=== PATIENT | female | born 1980 | race American Indian/Alaskan Native ===

== ENCOUNTER 2016-04-21 09:07 | Emergency (ER) | payer MEDICARE ==
--- NOTE | 2016-04-21 09:47 | Emergency Department Report ---
Chief Complaint: Chest Pain Stated Complaint: CHEST PAIN Time Seen by Provider: 04/21/16 09:40 - HPI History of Present Illness: 35 y/o female complain of chest pain x 1 day .pt state she has taken asa and blood pressures prior to arrival .pt state pain nonradiating and describe as a pulling sensation .denies any n/v at present - ROS Review of Systems: per hpI - Exam Vital Signs: Vital Signs 04/21/16 09:18 Temperature 99.4 F Pulse Rate 97 H Respiratory 16 Rate Blood Pressure 138/100 O2 Sat by Pulse 100 Oximetry Physical Exam: cv: regular rate and rhythm abd.soft and flat audible bowel sounds MSE screening note: Focused history and physical exam performed. Due to findings the following was ordered: ED Disposition for MSE Condition: Stable
[2016-04-21 10:29] LABS: Basophils % (Auto) 0.4 % (0.0-1.8); Eosinophils % (Auto) 0.7 % (0.0-4.3); Hematocrit 37.7 % (30.3-42.9); Hemoglobin 12.2 gm/dl (10.1-14.3); Mean Corpuscular HGB Conc 32 % (30-34); Mean Corpuscular Hemoglobin 26 pg (28-32); Mean Corpuscular Volume 81 fl (79-97); Platelet Count 293 K/mm3 (140-440); Red Blood Count 4.65 M/mm3 (3.65-5.03); Red Cell Distribution Width 18.4 % (13.2-15.2); White Blood Count 7.5 K/mm3 (4.5-11.0)
[2016-04-21 10:38] LABS: INR 1.08 (0.87-1.13)
[2016-04-21 10:39] LABS: Partial Thromboplastin Time 26.9 Sec. (24.2-36.6)
[2016-04-21 10:45] LABS: Anion Gap 21 mmol/L; Blood Urea Nitrogen 4 mg/dL (7-17); Carbon Dioxide 18 mmol/L (22-30); Chloride 102.8 mmol/L (98-107); Creatine Kinase 129 units/L (30-135); Glucose 104 mg/dL (65-100); Potassium 4.2 mmol/L (3.6-5.0); Sodium 138 mmol/L (137-145)
[2016-04-21 10:46] LABS: Creatine Kinase MB < 1.0 ng/mL (0.0-4.0)
--- NOTE | 2016-04-21 14:31 | Emergency Department Report ---
HPI - General Chief Complaint: Chest Pain Time Seen by Provider: 04/21/16 13:39 - HPI HPI: Chief complaint: Productive cough, chest pain fluctuant blood pressures HPI: Patient is a 35-year-old female with a history of hypertension states she' s had a cold for the last week and has been coughing up yellow sputum. Patient states she has chest pain in her anterior chest that hurts when she coughs and is a pulling type pain. Patient states she had her blood pressure refilled at her physician's office 4 days ago and she was given prescriptions for her normal medications but her hydrochlorothiazide was left off. Patient states usually her blood pressure is managed quite well with these medications but since she has not been taking the HCTZ and has been going up and down. Patient also states her pulses been rapid at times. Mode of arrival: EMS Source: Patient old chart Began: Cough for 1 week, chest pain since yesterday Duration: Continuous Context: See above Quality: Dull Severity: 6 out of 10 Improved with: Nothing Worsened with: Movement, cough, deep inspiration Associated signs and symptoms: No fever, nausea or vomiting ED Past Medical Hx - Past Medical History Hx Hypertension: Yes (2009) Hx Psychiatric Treatment: Yes Hx Asthma: Yes (SINCE CHILD) - Surgical History Additional Surgical History: MYOMECTOMY. - Social History Smoking Status: Never Smoker Substance Use Type: None - Medications Home Medications: Home Medications Medication Instructions Recorded Confirmed Last Taken Type ALBUTEROL Inhaler [ProAir HFA 2 puff IH QID PRN #1 inha 10/29/15 Unknown Rx Inhaler] Diltiazem [CarDIZEM] 60 mg PO DAILY 10/29/15 10/29/15 10/29/15 History LORazepam [Ativan] 2 mg PO BID 10/29/15 10/29/15 10/29/15 History Loratadine 10 mg PO DAILY 10/29/15 10/29/15 10/29/15 History Quetiapine Fumarate [Seroquel] 100 mg PO DAILY 10/29/15 10/29/15 10/29/15 History predniSONE [Deltasone] 20 mg PO QDAY #5 tab 10/29/15 Unknown Rx Azithromycin [Zithromax TAB] 500 mg PO QDAY #3 tablet 04/21/16 Unknown Rx Benzonatate [Tessalon Perles] 100 mg PO Q8HR PRN #14 capsule 04/21/16 Unknown Rx Hydrochlorothiazide [Hctz] 12.5 mg PO QDAY #30 capsule 04/21/16 Unknown Rx traMADol [Ultram 50 MG tab] 50 mg PO Q6HR PRN #10 tablet 04/21/16 Unknown Rx ED Review of Systems ROS: Stated complaint: CHEST PAIN Other details as noted in HPI ROS Constitutional: No fever ENT: No uri symptoms Cardiovascular: N chest pain Respiratory: See HPI GI: No nausea vomiting or diarrhea : No dysuria frequency or urgency, Skin: No rash Neuro: No focal weakness or numbness Psych: On Seroquel Escobar/lymph: No edema Physical Exam - Physical Exam Vital Signs: Vital Signs 04/21/16 09:18 Temperature 99.4 F Pulse Rate 97 H Respiratory 16 Rate Blood Pressure 138/100 O2 Sat by Pulse 100 Oximetry Physical Exam: GENERAL: The patient is well-developed well-nourished . HEENT: Normocephalic. Atraumatic. Extraocular motions are intact. Patient has moist mucous membranes. NECK: Supple. No meningitic signs are noted. There is no adenopathy noted. CHEST/LUNGS: Clear to auscultation. There is no respiratory distress noted. HEART/CARDIOVASCULAR: Regular. There is no tachycardia. There is no gallop rub or murmur. ABDOMEN: Abdomen is soft, nontender. Patient has normal bowel sounds. There is no abdominal distention. SKIN: There is no rash. There is no edema. There is no diaphoresis. NEURO: The patient is awake, alert, and oriented. The patient is cooperative. The patient has no focal neurologic deficits. The patient has normal speech. MUSCULOSKELETAL: There is no tenderness or deformity. There is no limitation range of motion. There is no evidence of acute injury. ED Course Vital Signs 04/21/16 09:18 Temperature 99.4 F Pulse Rate 97 H Respiratory 16 Rate Blood Pressure 138/100 O2 Sat by Pulse 100 Oximetry ED Medical Decision Making - Lab Data Result diagrams: 04/21/16 09:58 04/21/16 09:58 - EKG Data -: EKG Interpreted by Me EKG shows normal: sinus rhythm Rate: normal (93) - EKG Data When compared to previous EKG there are: no significant change Interpretation: normal EKG - Radiology Data interpreted by me: Chest x-ray within normal limits Critical care attestation.: If time is entered above; I have spent that time in minutes in the direct care of this critically ill patient, excluding procedure time. ED Disposition Clinical Impression: Bronchitis, Pleuritic chest pain, Essential hypertension Disposition: DISCHARGED TO HOME OR SELFCARE Is pt being admited?: No Does the pt Need Aspirin: No Condition: Stable Instructions: Chest Pain (ED), Acute Bronchitis (ED), Hypertension (ED) Prescriptions: Azithromycin [Zithromax TAB] 500 mg PO QDAY #3 tablet Benzonatate [Tessalon Perles] 100 mg PO Q8HR PRN #14 capsule PRN Reason: Cough Hydrochlorothiazide [Hctz] 12.5 mg PO QDAY #30 capsule traMADol [Ultram 50 MG tab] 50 mg PO Q6HR PRN #10 tablet PRN Reason: Pain Referrals: SHANIQUE INTERIANO MD [Primary Care Provider] - 3-5 Days Time of Disposition: 14:53
[2016-04-21 15:08] VITALS: BP 128/83
--- NOTE | 2016-04-22 07:51 | XRay Report ---
ROUTINE CHEST, TWO VIEWS: HISTORY: chest pain. The trachea, heart, mediastinal contour, lung ware and bony thorax are unremarkable. IMPRESSION: Unremarkable chest x-ray. No significant change since 12/18/15.
== END 2016-04-21 15:07 | disposition home or self-care (01) ==
LOC: ED 09:07
DX: J40 Bronchitis, not specified as acute or chronic (principal); R07.1 Chest pain on breathing; I10 Essential (primary) hypertension; J45.909 Unspecified asthma, uncomplicated
CPT/HCPCS: 36415; 71020; 80048; 82550; 82553; 84484; 84702; 85025; 85610; 85730; 93005; 93010; 99284

== ENCOUNTER 2016-10-04 01:23 | Inpatient (IN) | payer MEDICARE ==
[2016-10-04 02:41] LABS: Urine Drugs of Abuse Note Disclamer
[2016-10-04 02:52] LABS: Basophils % (Auto) 0.4 % (0.0-1.8); Eosinophils % (Auto) 0.1 % (0.0-4.3); Hematocrit 35.9 % (30.3-42.9); Hemoglobin 11.6 gm/dl (10.1-14.3); Mean Corpuscular HGB Conc 32 % (30-34); Mean Corpuscular Hemoglobin 26 pg (28-32); Mean Corpuscular Volume 82 fl (79-97); Platelet Count 310 K/mm3 (140-440); White Blood Count 7.6 K/mm3 (4.5-11.0)
[2016-10-04 02:57] LABS: Red Cell Distribution Width 21.8 % (13.2-15.2)
[2016-10-04 03:12] LABS: Alanine Aminotransferase 26 units/L (7-56); Albumin 4.6 g/dL (3.9-5); Albumin/Globulin Ratio 1.1 %; Alkaline Phosphatase 63 units/L (35-129); Anion Gap 19 mmol/L; BUN/Creatinine Ratio 11.42; Blood Urea Nitrogen 8 mg/dL (7-17); Calcium 9.5 mg/dL (8.4-10.2); Carbon Dioxide 22 mmol/L (22-30); Chloride 100.8 mmol/L (98-107); Glucose 108 mg/dL (65-100); Potassium 3.1 mmol/L (3.6-5.0); Sodium 139 mmol/L (137-145); Total Protein 8.8 g/dL (6.3-8.2)
[2016-10-04 03:39] LABS: Bilirubin,Urine Negative (Negative); Blood,Urine Trace (Negative); Ketones,Urine Negative (Negative); Leukocyte Esterase,Urine Negative (Negative); Nitrite,Urine Negative (Negative); Urobilinogen,Urine 0.2 mg/dL (<2.0)
[2016-10-04] MEDS ORDERED: PROVENTIL IH ONE (06:57)
[2016-10-04] MEDS ORDERED: DELTASONE PO ONE (06:57)
[2016-10-04] MEDS ORDERED: NACL 0.9% 1000 ML 1,000 ML IV ONE ×2 (06:59→09:04)
--- NOTE | 2016-10-04 07:04 | Emergency Department Report ---
ED Altered Mental Status HPI - General Chief Complaint: Altered Mental Status Stated Complaint: ASTHMA/SUDEEP Time Seen by Provider: 10/04/16 06:15 Source: patient, family Mode of arrival: Ambulatory Limitations: No Limitations - History of Present Illness Initial Comments: 36-year-old female with past medical history of anxiety is presented to the [facility] primary complaint altered mental status. Per patient, and her significant other at the bedside, they states she had episodes of extreme aggression and then tearfulness. Symptoms occurred just prior to ED arrival. Per boyfriend patient was celebrating her birthday throughout the day without alcohol or drugs, and then throughout the day she began to get increasingly irritable stating "get away from me, I don't like you" and then hours later extremely tearful saying "come closer,hold me" and the screaming at him again. Pt partner states she has had this type of behacior in the past however whenever it occurs pt has no recollection of it. The patient has no recollection of the events from prior today. She states "i dont know what happened" patient denies shortness of breath, dyspnea that was noted in nursing triage notes. Patient denies colon SI/HI/AH/VH. MD Complaint: altered mental status, confusion -: Sudden, hour(s) Consistency of Symptoms: waxing and waning Associated Symptoms: denies other symptoms. denies: chest pain, cough, diaphoresis, fever/chills, malaise, nausea/vomiting, seizure, shortness of breath, foul smelling urine, difficulty walking, diarrhea, incontinence - Related Data Home Medications Medication Instructions Recorded Confirmed Last Taken Loratadine 10 mg PO DAILY 10/29/15 10/04/16 10/29/15 Losartan [Cozaar] 100 mg PO DAILY MDD 100 mg 10/04/16 10/04/16 10/03/16 100 mg Nebivolol HCl [Bystolic] 10 mg PO DAILY MDD 10 mg 10/04/16 10/04/16 10/03/16 10 mg Previous Rx's Medication Instructions Recorded Last Taken Type ALBUTEROL Inhaler [ProAir HFA 2 puff IH QID PRN #1 inha 10/29/15 10/03/16 Rx Inhaler] Enoxaparin [Lovenox] 40 mg SUB-Q QDAY@2200 syringe 10/06/16 Unknown Rx Losartan [Cozaar] 100 mg PO QDAY tablet 10/06/16 Unknown Rx Allergies Allergy/AdvReac Type Severity Reaction Status Date / Time lorazepam AdvReac ELEVATES HR Verified 04/21/16 09:24 morphine AdvReac Unknown Verified 04/21/16 09:24 ED Review of Systems ROS: Stated complaint: ASTHMA/SUDEEP Other details as noted in HPI Psychiatric: anxiety. denies: depression, auditory hallucinations, visual hallucinations, homicidal thoughts, suicidal thoughts ED Past Medical Hx - Past Medical History Hx Hypertension: Yes (2009) Hx Congestive Heart Failure: No Hx Diabetes: No Hx Psychiatric Treatment: Yes (Anxiety) Hx Asthma: Yes (SINCE CHILD) Hx COPD: No Hx Dementia: No - Surgical History Additional Surgical History: MYOMECTOMY. - Social History Smoking Status: Never Smoker Substance Use Type: None - Medications Home Medications: Home Medications Medication Instructions Recorded Confirmed Last Taken Type ALBUTEROL Inhaler [ProAir HFA 2 puff IH QID PRN #1 inha 10/29/15 10/04/16 Rx Inhaler] Loratadine 10 mg PO DAILY 10/29/15 10/04/16 10/29/15 History Losartan [Cozaar] 100 mg PO DAILY MDD 100 mg 10/04/16 10/04/16 10/03/16 History 100 mg Nebivolol HCl [Bystolic] 10 mg PO DAILY MDD 10 mg 10/04/16 10/04/16 10/03/16 History 10 mg Enoxaparin [Lovenox] 40 mg SUB-Q QDAY@2200 syringe 10/06/16 Unknown Rx Losartan [Cozaar] 100 mg PO QDAY tablet 10/06/16 Unknown Rx ED Physical Exam - General Limitations: No Limitations - Psychiatric Psychiatric exam: Present: normal affect, normal mood, anxious. Absent: depressed, flat affect, homicidal ideation, suicidal ideation - Assessment Assessment Interval: Baseline - Level of Consciousness 1a. Level of Consciousness: alert - LOC Questions 1b. LOC Questions: answers correctly - LOC Command 1c. LOC Commands: performs tasks correctly - Best Gaze 2. Best Gaze: normal - Visual 3. Visual: no visual loss - Facial Palsy 4. Facial Palsy: normal symmetrical movement - Motor Arm 5b. Motor Arm Right: no drift 5a. Motor Arm Left: no drift - Motor Leg 6a. Motor Leg Left: no drift 6b. Motor Leg Right: no drift - Limb Ataxia 7. Limb Ataxia: absent - Sensory 8. Sensory: normal - Best Language 9. Best Language: no aphasia - Dysarthria 10. Dysarthria: normal - Extinction and Inattention 11. Extinction/Inattention: no abnormality - Scoring Total Score: 0 Stroke Severity: No Stroke Symptoms ED Course Vital Signs 10/04/16 10/04/16 10/04/16 01:42 06:00 06:20 Temperature 98 F Pulse Rate 133 H 112 H 114 H Pulse Rate [ Left] Respiratory 26 H 18 19 Rate Blood Pressure 153/109 Blood Pressure [Left Arm] Blood Pressure 153/109 141/84 [Left] O2 Sat by Pulse 100 98 100 Oximetry 10/04/16 10/04/16 10/04/16 06:30 07:35 09:30 Temperature 98.7 F Pulse Rate 115 H 116 H 108 H Pulse Rate [ Left] Respiratory 20 20 20 Rate Blood Pressure 133/82 Blood Pressure [Left Arm] Blood Pressure 153/98 152/76 [Left] O2 Sat by Pulse 100 100 100 Oximetry 10/04/16 10/04/16 10/04/16 12:05 14:00 20:22 Temperature 98.4 F 98.6 F 98.9 F Pulse Rate 100 H Pulse Rate [ 112 H 98 H Left] Respiratory 18 18 18 Rate Blood Pressure Blood Pressure 138/80 143/87 [Left Arm] Blood Pressure 152/96 [Left] O2 Sat by Pulse 100 100 99 Oximetry 10/05/16 10/05/16 10/05/16 00:42 08:00 15:00 Temperature 98 F 98.0 F 98.8 F Pulse Rate Pulse Rate [ 100 H 75 91 H Left] Respiratory 20 18 18 Rate Blood Pressure Blood Pressure 160/95 133/88 140/85 [Left Arm] Blood Pressure [Left] O2 Sat by Pulse 98 100 100 Oximetry 10/05/16 10/06/16 10/06/16 22:00 00:00 07:58 Temperature 98.0 F 99.0 F Pulse Rate Pulse Rate [ 90 84 Left] Respiratory 18 20 20 Rate Blood Pressure Blood Pressure 167/96 123/83 [Left Arm] Blood Pressure [Left] O2 Sat by Pulse 100 99 Oximetry 10/06/16 10:00 Temperature Pulse Rate Pulse Rate [ 20 L Left] Respiratory Rate Blood Pressure Blood Pressure [Left Arm] Blood Pressure [Left] O2 Sat by Pulse Oximetry - Reevaluation(s) Reevaluation #1: 10/04/16 09:41 Patient resting comfortably. - Lab Data Result diagrams: 10/05/16 06:07 10/06/16 05:11 Lab Results 10/04/16 10/04/16 10/04/16 Range/Units 02:25 02:25 02:32 WBC (4.5-11.0) K/mm3 RBC (3.65-5.03) M/mm3 Hgb (10.1-14.3) gm/dl Hct (30.3-42.9) % MCV (79-97) fl MCH (28-32) pg MCHC (30-34) % RDW (13.2-15.2) % Plt Count (140-440) K/mm3 Lymph % (Auto) (13.4-35.0) % Harmon % (Auto) (0.0-7.3) % Eos % (Auto) (0.0-4.3) % Baso % (Auto) (0.0-1.8) % Lymph # (1.2-5.4) K/mm3 Harmon # (0.0-0.8) K/mm3 Eos # (0.0-0.4) K/mm3 Baso # (0.0-0.1) K/mm3 Seg Neutrophils % (40.0-70.0) % Seg Neutrophils # (1.8-7.7) K/mm3 D-Dimer (0-234) ng/mlDDU Sodium (137-145) mmol/L Potassium (3.6-5.0) mmol/L Chloride (98-107) mmol/L Carbon Dioxide (22-30) mmol/L Anion Gap mmol/L BUN (7-17) mg/dL Creatinine (0.7-1.2) mg/dL Estimated GFR ml/min BUN/Creatinine Ratio % Glucose (65-100) mg/dL POC Glucose (70-105) Lactic Acid (0.7-2.0) mmol/L Calcium (8.4-10.2) mg/dL Magnesium (1.7-2.3) mg/dL Total Bilirubin (0.1-1.2) mg/dL AST (5-40) units/L ALT (7-56) units/L Alkaline Phosphatase (35-129) units/L Total Protein (6.3-8.2) g/dL Albumin (3.9-5) g/dL Albumin/Globulin Ratio % TSH (0.270-4.200) mlU/mL HCG, Qual Negative (Negative) Urine Color Yellow (Yellow) Urine Turbidity Clear (Clear) Urine pH 5.0 (5.0-7.0) Ur Specific [place] 1.020 (1.003-1.030) Urine Protein 30 mg/dl (Negative) mg/dL Urine Glucose (UA) Negative (Negative) mg/dL Urine Ketones Negative (Negative) mg/dL Urine Blood Trace (Negative) Urine Nitrite Negative (Negative) Urine Bilirubin Negative (Negative) Urine Urobilinogen 0.2 (<2.0) mg/dL Ur Leukocyte Esterase Negative (Negative) Urine WBC (Auto) 1.0 (0.0-6.0) /HPF Urine RBC (Auto) 2.0 (0.0-6.0) /HPF U Epithel Cells (Auto) 5.0 (0-13.0) /HPF Salicylates (2.8-20.0) mg/dL Urine Opiates Screen Presumptive negative Urine Methadone Screen Presumptive negative Acetaminophen (10.0-30.0) ug/mL Ur Barbiturates Screen Presumptive negative Ur Phencyclidine Scrn Presumptive negative Ur Amphetamines Screen Presumptive negative U Benzodiazepines Scrn Presumptive negative Urine Cocaine Screen Presumptive negative U Marijuana (THC) Screen Presumptive negative Drugs of Abuse Note Disclamer Plasma/Serum Alcohol (0-0.07) gm% 10/04/16 10/04/16 10/04/16 Range/Units 02:32 02:32 02:32 WBC 7.6 (4.5-11.0) K/mm3 RBC 4.40 (3.65-5.03) M/mm3 Hgb 11.6 (10.1-14.3) gm/dl Hct 35.9 (30.3-42.9) % MCV 82 (79-97) fl MCH 26 L (28-32) pg MCHC 32 (30-34) % RDW 21.8 H (13.2-15.2) % Plt Count 310 (140-440) K/mm3 Lymph % (Auto) 22.8 (13.4-35.0) % Harmon % (Auto) 9.7 H (0.0-7.3) % Eos % (Auto) 0.1 (0.0-4.3) % Baso % (Auto) 0.4 (0.0-1.8) % Lymph # 1.7 (1.2-5.4) K/mm3 Harmon # 0.7 (0.0-0.8) K/mm3 Eos # 0.0 (0.0-0.4) K/mm3 Baso # 0.0 (0.0-0.1) K/mm3 Seg Neutrophils % 67.0 (40.0-70.0) % Seg Neutrophils # 5.1 (1.8-7.7) K/mm3 D-Dimer (0-234) ng/mlDDU Sodium 139 (137-145) mmol/L Potassium 3.1 L (3.6-5.0) mmol/L Chloride 100.8 (98-107) mmol/L Carbon Dioxide 22 (22-30) mmol/L Anion Gap 19 mmol/L BUN 8 (7-17) mg/dL Creatinine 0.7 (0.7-1.2) mg/dL Estimated GFR > 60 ml/min BUN/Creatinine Ratio 11.42 % Glucose 108 H (65-100) mg/dL POC Glucose (70-105) Lactic Acid 4.40 H* (0.7-2.0) mmol/L Calcium 9.5 (8.4-10.2) mg/dL Magnesium 1.60 L (1.7-2.3) mg/dL Total Bilirubin 0.40 (0.1-1.2) mg/dL AST 54 H (5-40) units/L ALT 26 (7-56) units/L Alkaline Phosphatase 63 (35-129) units/L Total Protein 8.8 H (6.3-8.2) g/dL Albumin 4.6 (3.9-5) g/dL Albumin/Globulin Ratio 1.1 % TSH (0.270-4.200) mlU/mL HCG, Qual (Negative) Urine Color (Yellow) Urine Turbidity (Clear) Urine pH (5.0-7.0) Ur Specific [place] (1.003-1.030) Urine Protein (Negative) mg/dL Urine Glucose (UA) (Negative) mg/dL Urine Ketones (Negative) mg/dL Urine Blood (Negative) Urine Nitrite (Negative) Urine Bilirubin (Negative) Urine Urobilinogen (<2.0) mg/dL Ur Leukocyte Esterase (Negative) Urine WBC (Auto) (0.0-6.0) /HPF Urine RBC (Auto) (0.0-6.0) /HPF U Epithel Cells (Auto) (0-13.0) /HPF Salicylates (2.8-20.0) mg/dL Urine Opiates Screen Urine Methadone Screen Acetaminophen (10.0-30.0) ug/mL Ur Barbiturates Screen Ur Phencyclidine Scrn Ur Amphetamines Screen U Benzodiazepines Scrn Urine Cocaine Screen U Marijuana (THC) Screen Drugs of Abuse Note Plasma/Serum Alcohol (0-0.07) gm% 10/04/16 10/04/16 10/04/16 Range/Units 02:32 02:32 02:32 WBC (4.5-11.0) K/mm3 RBC (3.65-5.03) M/mm3 Hgb (10.1-14.3) gm/dl Hct (30.3-42.9) % MCV (79-97) fl MCH (28-32) pg MCHC (30-34) % RDW (13.2-15.2) % Plt Count (140-440) K/mm3 Lymph % (Auto) (13.4-35.0) % Harmon % (Auto) (0.0-7.3) % Eos % (Auto) (0.0-4.3) % Baso % (Auto) (0.0-1.8) % Lymph # (1.2-5.4) K/mm3 Harmon # (0.0-0.8) K/mm3 Eos # (0.0-0.4) K/mm3 Baso # (0.0-0.1) K/mm3 Seg Neutrophils % (40.0-70.0) % Seg Neutrophils # (1.8-7.7) K/mm3 D-Dimer (0-234) ng/mlDDU Sodium (137-145) mmol/L Potassium (3.6-5.0) mmol/L Chloride (98-107) mmol/L Carbon Dioxide (22-30) mmol/L Anion Gap mmol/L BUN (7-17) mg/dL Creatinine (0.7-1.2) mg/dL Estimated GFR ml/min BUN/Creatinine Ratio % Glucose (65-100) mg/dL POC Glucose (70-105) Lactic Acid (0.7-2.0) mmol/L Calcium (8.4-10.2) mg/dL Magnesium (1.7-2.3) mg/dL Total Bilirubin (0.1-1.2) mg/dL AST (5-40) units/L ALT (7-56) units/L Alkaline Phosphatase (35-129) units/L Total Protein (6.3-8.2) g/dL Albumin (3.9-5) g/dL Albumin/Globulin Ratio % TSH 1.190 (0.270-4.200) mlU/mL HCG, Qual (Negative) Urine Color (Yellow) Urine Turbidity (Clear) Urine pH (5.0-7.0) Ur Specific [place] (1.003-1.030) Urine Protein (Negative) mg/dL Urine Glucose (UA) (Negative) mg/dL Urine Ketones (Negative) mg/dL Urine Blood (Negative) Urine Nitrite (Negative) Urine Bilirubin (Negative) Urine Urobilinogen (<2.0) mg/dL Ur Leukocyte Esterase (Negative) Urine WBC (Auto) (0.0-6.0) /HPF Urine RBC (Auto) (0.0-6.0) /HPF U Epithel Cells (Auto) (0-13.0) /HPF Salicylates < 0.3 L (2.8-20.0) mg/dL Urine Opiates Screen Urine Methadone Screen Acetaminophen < 15.0 (10.0-30.0) ug/mL Ur Barbiturates Screen Ur Phencyclidine Scrn Ur Amphetamines Screen U Benzodiazepines Scrn Urine Cocaine Screen U Marijuana (THC) Screen Drugs of Abuse Note Plasma/Serum Alcohol (0-0.07) gm% 10/04/16 10/04/16 10/04/16 Range/Units 02:32 02:34 05:27 WBC (4.5-11.0) K/mm3 RBC (3.65-5.03) M/mm3 Hgb (10.1-14.3) gm/dl Hct (30.3-42.9) % MCV (79-97) fl MCH (28-32) pg MCHC (30-34) % RDW (13.2-15.2) % Plt Count (140-440) K/mm3 Lymph % (Auto) (13.4-35.0) % Harmon % (Auto) (0.0-7.3) % Eos % (Auto) (0.0-4.3) % Baso % (Auto) (0.0-1.8) % Lymph # (1.2-5.4) K/mm3 Harmon # (0.0-0.8) K/mm3 Eos # (0.0-0.4) K/mm3 Baso # (0.0-0.1) K/mm3 Seg Neutrophils % (40.0-70.0) % Seg Neutrophils # (1.8-7.7) K/mm3 D-Dimer (0-234) ng/mlDDU Sodium (137-145) mmol/L Potassium (3.6-5.0) mmol/L Chloride (98-107) mmol/L Carbon Dioxide (22-30) mmol/L Anion Gap mmol/L BUN (7-17) mg/dL Creatinine (0.7-1.2) mg/dL Estimated GFR ml/min BUN/Creatinine Ratio % Glucose (65-100) mg/dL POC Glucose 101 (70-105) Lactic Acid 3.50 H* (0.7-2.0) mmol/L Calcium (8.4-10.2) mg/dL Magnesium (1.7-2.3) mg/dL Total Bilirubin (0.1-1.2) mg/dL AST (5-40) units/L ALT (7-56) units/L Alkaline Phosphatase (35-129) units/L Total Protein (6.3-8.2) g/dL Albumin (3.9-5) g/dL Albumin/Globulin Ratio % TSH (0.270-4.200) mlU/mL HCG, Qual (Negative) Urine Color (Yellow) Urine Turbidity (Clear) Urine pH (5.0-7.0) Ur Specific [place] (1.003-1.030) Urine Protein (Negative) mg/dL Urine Glucose (UA) (Negative) mg/dL Urine Ketones (Negative) mg/dL Urine Blood (Negative) Urine Nitrite (Negative) Urine Bilirubin (Negative) Urine Urobilinogen (<2.0) mg/dL Ur Leukocyte Esterase (Negative) Urine WBC (Auto) (0.0-6.0) /HPF Urine RBC (Auto) (0.0-6.0) /HPF U Epithel Cells (Auto) (0-13.0) /HPF Salicylates (2.8-20.0) mg/dL Urine Opiates Screen Urine Methadone Screen Acetaminophen (10.0-30.0) ug/mL Ur Barbiturates Screen Ur Phencyclidine Scrn Ur Amphetamines Screen U Benzodiazepines Scrn Urine Cocaine Screen U Marijuana (THC) Screen Drugs of Abuse Note Plasma/Serum Alcohol < 0.01 (0-0.07) gm% 10/04/16 Range/Units 07:26 WBC (4.5-11.0) K/mm3 RBC (3.65-5.03) M/mm3 Hgb (10.1-14.3) gm/dl Hct (30.3-42.9) % MCV (79-97) fl MCH (28-32) pg MCHC (30-34) % RDW (13.2-15.2) % Plt Count (140-440) K/mm3 Lymph % (Auto) (13.4-35.0) % Harmon % (Auto) (0.0-7.3) % Eos % (Auto) (0.0-4.3) % Baso % (Auto) (0.0-1.8) % Lymph # (1.2-5.4) K/mm3 Harmon # (0.0-0.8) K/mm3 Eos # (0.0-0.4) K/mm3 Baso # (0.0-0.1) K/mm3 Seg Neutrophils % (40.0-70.0) % Seg Neutrophils # (1.8-7.7) K/mm3 D-Dimer < 135 (0-234) ng/mlDDU Sodium (137-145) mmol/L Potassium (3.6-5.0) mmol/L Chloride (98-107) mmol/L Carbon Dioxide (22-30) mmol/L Anion Gap mmol/L BUN (7-17) mg/dL Creatinine (0.7-1.2) mg/dL Estimated GFR ml/min BUN/Creatinine Ratio % Glucose (65-100) mg/dL POC Glucose (70-105) Lactic Acid (0.7-2.0) mmol/L Calcium (8.4-10.2) mg/dL Magnesium (1.7-2.3) mg/dL Total Bilirubin (0.1-1.2) mg/dL AST (5-40) units/L ALT (7-56) units/L Alkaline Phosphatase (35-129) units/L Total Protein (6.3-8.2) g/dL Albumin (3.9-5) g/dL Albumin/Globulin Ratio % TSH (0.270-4.200) mlU/mL HCG, Qual (Negative) Urine Color (Yellow) Urine Turbidity (Clear) Urine pH (5.0-7.0) Ur Specific [place] (1.003-1.030) Urine Protein (Negative) mg/dL Urine Glucose (UA) (Negative) mg/dL Urine Ketones (Negative) mg/dL Urine Blood (Negative) Urine Nitrite (Negative) Urine Bilirubin (Negative) Urine Urobilinogen (<2.0) mg/dL Ur Leukocyte Esterase (Negative) Urine WBC (Auto) (0.0-6.0) /HPF Urine RBC (Auto) (0.0-6.0) /HPF U Epithel Cells (Auto) (0-13.0) /HPF Salicylates (2.8-20.0) mg/dL Urine Opiates Screen Urine Methadone Screen Acetaminophen (10.0-30.0) ug/mL Ur Barbiturates Screen Ur Phencyclidine Scrn Ur Amphetamines Screen U Benzodiazepines Scrn Urine Cocaine Screen U Marijuana (THC) Screen Drugs of Abuse Note Plasma/Serum Alcohol (0-0.07) gm% - EKG Data EKG shows normal: sinus rhythm (109), axis (positive ), intervals (QTC 476) Rate: tachycardia (109) When compared to previous EKG there are: previous EKG unavailable - Radiology Data Radiology results: image reviewed Negative for acute findings. - Medical Decision Making 36 yo female with past medical history of anxiety as presented to the emergency room complaining of what appears to be resolved acute psychosis. At this time given patient presented with tachycardia, significant elevated lactic acid i will admit for obs and hydration. The cause of her lactic acidosis, sure of at this time however I will start on them. IV and a biotic treatment. I low suspicion for: PE, thyroid storm, Sepsis, UTI, PNA. Pt is resting comfortably and agrees to plan - NEXUS Criteria Focal neurological deficit present: No Midline spinal tenderness present: No Altered level of consciousness: No Intoxication present: No Distracting injury present: No NEXUS results: C-Spine can be cleared clinically by these results. Imaging is not required. Critical Care Time: Yes Critical care attestation.: If time is entered above; I have spent that time in minutes in the direct care of this critically ill patient, excluding procedure time. Critical Care Time: 35 MINUTES ED Disposition Clinical Impression: Psychoses, Tachycardia, Lactic acidosis Disposition: DC-01 TO HOME OR SELFCARE Is pt being admited?: Yes Does the pt Need Aspirin: No Condition: Stable
--- NOTE | 2016-10-04 07:19 | XRay Report ---
Single view chest: Compared to 04/21/16. History: Cough. Findings: Normal cardiomediastinal silhouette. Trachea is midline. No consolidation, pneumothorax or pleural effusion. Impression: No acute cardiopulmonary findings.
[2016-10-04] MEDS ORDERED: LEVAQUIN 750MG/150ML 750 MG/150 ML BAG IV ONE (09:36)
--- NOTE | 2016-10-04 09:37 | Admit Criteria Form ---
Admission Criteria Documentation: GENERAL ADMISSION CRITERIA (Place 'X' for any and all applicable criteria): Admission is indicated for ANY ONE of the following: [X ]I. Hemodynamic instability as indicated by ANY ONE of the following(1)(2 )(3)(4)(5): [ ]a) Vital sign abnormality not readily corrected by appropriate treatment within 12 to 24 hours indicated by ANY ONE of the following: [ ]i) Hypotension [ ]ii) Symptomatic Tachycardia unresponsive to treatment (eg , analgesia, fluids, sedation as indicated) [ ]iii) Orthostatic vital sign changes unresponsive to treatment (eg, fluids) [X ]b) Vital sign abnormality that is severe indicated by ANY ONE of the following: [ X]i) Inadequate perfusion indicated by ANY ONE of the following: [X ]1) Lactic acidosis (greater than 2 mmol/L) [ ]2) New abnormal capillary refill (greater than 3 seconds) [ ]3) Other metabolic acidosis (arterial pH less than 7.35) not otherwise explained [ ]4) Reduced urine output [ ]5) Altered mental status [ ]6) Myocardial Ischemia [ ]v) Mean arterial pressure[A] less than 60 mm Hg [ ]vi) Mean arterial pressure[A] less than 70 mm Hg after 30 minutes of appropriate treatment (eg, fluid resuscitation) [ ]vii) IV inotropic or vasopressor medication required to maintain adequate blood pressure or perfusion [ ]viii) Sustained heart rate greater than 120 beats per minute in adult or child 6 years or older[B]] [ ]II. Hypertension requiring inpatient treatment as indicated by ANY ONE of the following(6)(7)(8): [ ]a) SBP greater than 220 mm Hg or DBP greater than 120 mm Hg despite treatment [ ]b) SBP greater than 140 mm Hg or DBP greater than 100 mm Hg with evidence of acute end organ damage as indicated by ANY ONE of the following: [ ]i) Encephalopathy [ ]ii) Acute renal failure as indicated by new onset of ANY ONE of the following(9)(10)(11)(12)(13): [ ]1) A 3-fold rise in serum creatinine from baseline [ ]2) Serum creatinine greater than 4 mg/dL ( 354 micromoles/L) with acute rise greater than 0.5 mg/dL (44.2 micromoles/L) [ ]3) Reduction of more than 75% in estimated glomerular filtration rate from baseline [ ]4) Estimated glomerular filtration rate less than 35 mL/min/1.73m2 (0.59 mL/sec/1.73m2) in child up to 18 years of age [ ]5) Cessation of urine output indicated by ALL of the following: [ ]A. Adequate volume status [ ]B. Inadequate urine output as indicated by ANY ONE of the following: [ ]a. Urine output less than 0.3 mL/kg/hr for 24 hours [ ]b. Anuria (urine output less than 0.1 mL/kg/hr) for 12 hours [ ]iii) Aortic dissection [ ]iv) Myocardial ischemia [ ]v) Left ventricular heart failure [ ]vi) Retinal hemorrhage [ ]vii) Other significant finding [ ]c) Hypertension in child requiring inpatient treatment as indicated by ALL of the following(14)(15)(16): [ ]i) Outpatient treatment not effective, not available, or not appropriate [ ]ii) SBP or DBP greater than 95th percentile for age [ ]iii) Evidence of acute end organ damage as indicated by ANY ONE of the following: [ ]1) Altered mental status [ ]2) Acute renal failure as indicated by new onset of ANY ONE of the following(9)(10)(11)(12)(13): [ ]A. A 3-fold rise in serum creatinine from baseline [ ]B. Serum creatinine greater than 4 mg/dL (354 micromoles/L) with acute rise greater than 0.5 mg/dL (44.2 micromoles/L) [ ]C. Reduction of more than 75% in estimated glomerular filtration rate from baseline [ ]D. Estimated glomerular filtration rate less than 35 mL/min/1.73m2 (0.59 mL/sec/1.73m2)in child up to 18 years of age [ ]E. Cessation of urine output indicated by ALL of the following: [ ]a. Adequate volume status [ ]b. Inadequate urine output as indicated by ANY ONE of the following: [ ]1) Urine output less than 0.3 mL/kg/hr for 24 hours [ ]2) Anuria (urine output less than 0.1 mL/kg/hr) for 12 hours [ ]3) Severe headache [ ]4) Visual disturbance [ ]5) Retinal hemorrhage [ ]6) Other significant finding [ ]III. Acute cardiac or peripheral ischemia as indicated by ANY ONE of the following: [ ]a) Acute coronary syndrome(17)(18) [ ]b) Acute peripheral ischemia (eg, pulseless, cool, mottled, or cyanotic extremity)(19) [ ]IV. Cardiac arrhythmias or findings of immediate concern indicated by ANY ONE of the following(20)(21): [ ]a) Heart rhythms that are inherently dangerous or unstable indicated by ANY ONE of the following(22)(23)(24): [ ]i) Resuscitated ventricular fibrillation or cardiac arrest [ ]ii) Ventricular escape rhythm [ ]iii) Sustained ventricular tachycardia (30 seconds or more of ventricular rhythm at greater than 100 beats per minute) [ ]iv) Nonsustained ventricular tachycardia and ANY ONE of the following: [ ]1) Suspected cardiac ischemia as cause or consequence of ventricular tachycardia [ ]2) In setting of acute myocarditis [ ]b) Unstable cardiac conduction defects indicated by ANY ONE of the following(24)(25)(26): [ ]i) Type II second-degree atrioventricular block [ ]ii) Third-degree atrioventricular block [ ]iii) New-onset left bundle branch block with suspected myocardial ischemia [ ]c) Any heart rhythm and ANY ONE of the following(22)(23)(27)(28)( 29): [ ] i) Continuous long-term ECG monitoring needed (eg, initiation of drug requiring monitoring for more than 24 hours) [ ] ii) Patient has automatic implanted cardioverter defibrillator that is repeatedly firing, malfunctioning, or in need of immediate adjustment of settings beyond the scope of ambulatory or observation care. [ ]d) Heart rhythms of concern due to ANY ONE of the following: [ ]i) Hypotension [ ]ii) Respiratory distress [ ]iii) Association with other significant symptoms (eg, bradycardia with syncope or ongoing dizziness, supraventricular tachycardia with chest pain) (27)(28) (30) [ ] V. Severe heart failure as indicated by ANY ONE of the following ( 31)(32): [ ]a) Respiratory distress [ ]b) Hypotension [ ]c) Anasarca (refractory to outpatient therapy) [ ]d) Cardiac arrhythmias of immediate concern [ ]e) Myocardial ischemia [ ]. Respiratory abnormalities, including ANY ONE of the following(33)(34) (35)(36): [ ]a) Respiratory rate greater than 30 breaths per minute unresponsive to treatment [A] [ ]b) New saturation of arterial oxygen less than 90% [ ]c) New partial pressure of carbon dioxide greater than 44 mm Hg ( 5.9 kPa) [ ]d) Supplemental oxygen or respiratory treatments needed that are new or not performable at other levels of care [ ]e) New-onset cyanosis [ ]f) Inability to protect airway [ ]g) Chronic lung disease with severe deterioration (not responsive to emergency and observation care treatment as appropriate) as indicated by ANY ONE of the following(34)(36 ): [ ]i) SaO2 5% below baseline in patient with chronic hypoxemia [ ]ii) New requirement for supplemental oxygen to keep SaO2 at baseline or acceptable level [ ]iii) Required supplemental oxygen performable only in acute inpatient setting [ ]iv) Severe airflow or ventilation abnormalities [ ]v) Previously mobile patient unable to walk between rooms [ ]vi Inability to eat or sleep due to dyspnea [ ]vii) Rapid rate of exacerbation onset [ ]viii) Altered mental status ]VII. Severe airflow or ventilation abnormalities (not responsive to emergency and observation care treatment as appropriate) as indicated by ANY ONE of the following(33)(34)(35)(37): [ ]a) PCO2 greater than 42 mm Hg (5.6 kPa) and pH less than 7.35 (new ) [ ]b) Documented PCO2 increased more than 5 mm Hg (0.7 kPa) from disease baseline [ ]c) Airflow measurements [B] less than 60% of previous best or predicted (eg, peak expiratory flow rate less than 300 L/minute) despite intensive emergent treatment [C] [ ]d) Required respiratory treatments that are performable only in acute inpatient setting [ ]VIII. Impending or actual respiratory arrest ( Also use Respiratory Failure GRG for severe respiratory disease and long-term mechanical ventilation patients) [ ]IX. Neurologic abnormalities, including ANY ONE of the following: [ ]a) New findings that suggest ANY ONE of the following: [ ]i) [employer] infection(38) [ ]ii) Cerebral bleeding, ischemia, or vasospasm(39)(40) [ ]iii) Increased intracranial pressure, hydrocephalus, or cerebral edema(41)(42)(43) [ ]iv) Spinal cord injury(44) [ ]b) Uncontrolled seizures(45) [ ]c) New-onset coma (eg, [place] coma scale score less than 9) or unexplained abnormal mental status (eg, [place] coma scale score less than 14) [D](41)(46)(47) [ ]X. New-onset severe neurologic findings requiring inpatient care; examples include(42)(48)(49): [ ]a) Papilledema [ ]b) Cerebral edema [ ]c) Mass effect on CT scan [ ]XI. Suspected acute intra-abdominal process with peritoneal signs, abdominal mass, or similar findings (50)(51)(52) [ ]XII. Severe physiologic disorder remaining after emergency or observation level care (as appropriate) as indicated by ANY ONE of the following (53): [ ]a) Significant dehydration [ ]b) Diabetic ketoacidosis [ ]c) Hyperglycemic hyperosmolar state (eg, osmolality greater than 320 mOsm/kg (mmol/kg) [ ]d) Hypoglycemia [ ]e) Other (new) acid-base disorder with pH less than 7.35 or greater than 7.5(54) [ ]f) Thyroid storm (55) [ ]g) Myxedema coma (55) [ ]XIII. Abdominal abnormalities with ANY ONE of the following(56)(57): [ ]a) Absent bowel sounds with complete ileus [ ]b) Signs of intestinal obstruction or peritonitis [E] [ ]c) Nausea and vomiting that cannot be controlled with outpatient or observation care [ ]XIV. Acute renal failure as indicated by new onset of ANY ONE of the following(9)(10)(11)(12)(13): [ ]a) A 3-fold rise in serum creatinine from baseline [ ]b) Serum creatinine greater than 4 mg/dL (354 micromoles/L) with acute rise greater than 0.5 mg/dL (44.2 micromoles/L) [ ]c) Reduction of more than 75% in estimated glomerular filtration rate from baseline [ ]d) Estimated glomerular filtration rate less than 35 mL/min/ 1.73m2 (0.59 mL/sec/1.73m2) in child up to 18 years of age [ ]e) Cessation of urine output indicated by ALL of the following: [ ]i) Adequate volume status [ ]ii) Inadequate urine output as indicated by ANY ONE of the following: [ ]1) Urine output less than 0.3 mL/kg/hr for 24 hours [ ]2) Anuria (urine output less than 0.1 mL/kg/hr) for 12 hours [ ]XV. Significant uremic complications as indicated by ANY ONE of the following(58)(59)(60): [ ]a) Outpatient therapy is ineffective or not feasible for ANY ONE of the following: [ ]i) Severe heart failure [ ]ii) Severehypertension [ ]iii) Pleural effusion [ ]iv) Pericarditis or pericardial effusion [ ]b) Cardiac arrhythmias of immediate concern [ ]c) Intractable nausea or vomiting [ ]d) Recurrent seizures [ ]e) Encephalopathy [ ]f) Bleeding abnormalities (eg, platelet dysfunction) with active (eg, gastrointestinal) bleeding [ ]g) Dialysis indicated before long-term access or ambulatory arrangements can be made [ ]h) Significant metabolic or electrolyte abnormalities (eg, severe acidosis or hyperkalemia) [ ]XVI. High fever or other high-risk infection situation as indicated by ANY ONE of the following(61)(62)(63)(64): [ ]a) Outpatient and observation care antimicrobial treatment unavailable, not effective, or not appropriate [ ]b) Documented bacteremia [ ]c) Temperature greater than 40.5 degrees C (104.9 degrees F) ( oral) [ ]d) Temperature greater than 39.5 degrees C (103.1 degrees F) ( oral) or less than 36 degrees C (96.8 degrees F) (rectal) that does not respond to e treatment and observation care [ ] XVII. Temperature less than 95 degrees F (35 degrees C)(rectal)(65) [ ] XVIII. Severe nutritional abnormalities as indicated by ALL of the following (66)(67): [ ]a) Inability to tolerate or establish sufficient oral or other enteral nutrition in outpatient setting [ ]b) Parenteral nutrition regimen need that must be implemented on inpatient basis [ ] XIX. Severe electrolyte abnormalities indicated by ALL of the following(68) (69)(70): [ ]a) Electrolytes and associated findings are not as expected for patient baseline or acceptable treatment effects. [ ]b) Severe abnormalities indicated by ANY ONE of the following: [ ]i) Sodium less than 130 mEq/L (mmol/L) (new) [ ]ii)Sodium less than 135 mEq/L (mmol/L) with ANY ONE of the following: [ ]1) Uncorrectable (to near normal or chronic baseline) after trial of outpatient and emergency treatment [ ]2) Altered mental status [ ]3) Seizures [ ]4) Severe medical etiology requiring inpatient management (eg, heart failure, hypovolemia) [ ]iii) Sodium greater than 155 mEq/L (mmol/L) [ ]iv) Sodium greater than 150 mEq/L (mmol/L) with ANY ONE of the following: [ ]1) Uncorrectable (to near normal or chronic baseline) with outpatient and emergency treatment [ ]2) Altered mental status [ ]3) Seizures [ ]4) Severe medical etiology (eg, hypovolemia, diabetes insipidus) [ ]v) Potassium less than 2.5 mEq/L (mmol/L) despite outpatient and emergency treatment [ ]vi) Potassium less than 3 mEq/L (mmol/L) with ANY ONE of the following: [ ]1) Weakness [ ]2) Cardiac abnormality (eg, arrhythmia, conduction disturbance) [ ]3) Cardiac ischemia [ ]4) Ileus [ ]5) Ongoing medical cause requiring inpatient management (eg, acute renal wasting or SIADH) [ ]6) Other severe symptoms [ ]vii) Potassium greater than 6.5 mEq/L (mmol/L) [ ]viii) Potassium greater than 5 mEq/L (mmol/L) with ANY ONE of the following: [ ]1) Uncorrectable (to near normal or chronic baseline) with outpatient and emergency treatment [ ]2) Severe ECG findings [F] [ ]3) Acute worsening of renal failure (creatinine greater than 2.5 mg/dL (221 micromoles/L) or significant elevation for age and size) [ ]4) Severe weakness [ ]5) Severe medical etiology (eg, hemolysis, infection, drug overdose) [ ]ix) Calcium less than 7 mg/dL (1.75 mmol/L) despite outpatient and emergency treatment (72) [ ]x) Calcium less than 8 mg/dL (2 mmol/L) with significant symptoms or findings; examples include(72): [ ]1) Altered mental status [ ]2) Muscle spasms [ ]3) Seizures [ ]4) Breathing difficulty [ ]5) Cardiac abnormality (eg, arrhythmia or conduction disturbance) [ ]xi) Calcium greater than 14 mg/dL (3.5 mmol/L)(72) [ ]xii) Calcium greater than 12 mg/dL (3 mmol/L) with ANY ONE of the following(72): [ ]1) Uncorrectable (to near normal or chronic baseline) with outpatient and emergency treatment [ ]2) Significant dehydration or hypovolemia as indicated by ALL of the following(70)(73)(74): [ ]A. Not resolved with initial treatments [ ]B. Clinically significant dehydration as indicated by ANY ONE of the following: [ ]a. Vomiting refractory to outpatient treatment (ie, precluding oral rehydration) [ ]b. Inability to drink [ ]c. Hypernatremia or other electrolyte abnormality unable to be corrected with outpatient and emergency treatment [ ]d. Failure to remain hydrated with outpatient therapy [ ]e. Reduced urine output [ ]f. Hypotension [ ]g. Serious cause for dehydration requiring acute hospitalization (eg, bowel obstruction, increased intracranial pressure, infectious cause) [ ]h. Child with ANY ONE of the following(75): [ ]1) Severe abdominal tenderness [ ]2) Adequate care not available at home [ ]3) Severe dehydration ( greater than 9% loss of body weight) [ ]4) Significant symptoms or findings; examples include: [ ]A. Altered mental status [ ]B. Cardiac abnormality (eg, arrhythmia, conduction disturbance) [ ]C. Malignant etiology requiring inpatient treatment [ ]xiii) Phosphorus less than 1 mg/dL (0.32 mmol/L) [ ]xiv) Phosphorus less than 1.5 mg/dL (0.48 mmol/L) with ANY ONE of the following: [ ]1) Patient unresponsive to outpatient and emergency treatment [ ]2) Significant symptoms or findings; examples include: [ ]A. Weakness [ ]B. Altered mental status [ ]C. Breathing difficulty [ ]D. Seizures [ ]E. Rhabdomyolysis [ ]xv) Phosphorus greater than 10 mg/dL (3.2 mmol/L) [ ]xvi) Phosphorus greater than 4.5 mg/dL (1.45 mmol/L) (new) with ANY ONE of the following: [ ]1) Severe medical etiology (eg, crush injury, acute renal failure) [ ]2) Associated hypocalcemia with significant findings; examples include: [ ]A. Neurologic symptoms [ ]B. Altered mental status [ ]C. Muscle spasms [ ]D. Seizures [ ]E. Breathing difficulty [ ]F. Cardiac abnormality (eg, arrhythmia, conduction disturbance) [ ]xvii) Magnesium less than 1 mg/dL (0.41 mmol/L) [ ]xviii) Magnesium less than 1.5 mg/dL (0.62 mmol/L) with ANY ONE of the following: [ ]1) Patient unresponsive to outpatient and emergency treatment [ ]2) Associated hypocalcemia with significant findings; examples include: [ ]A. Altered mental status [ ]B. Muscle spasms [ ]C. Seizures [ ]D. Breathing difficulty [ ]E. Cardiac abnormality (eg, arrhythmia , conduction disturbance) [ ]3) Associated hypokalemia (potassium less than 3 mEq/L (mmol/L)) with risk of arrhythmia [ ]xix) Magnesium greater than 4 mEq/L (2 mmol/L) [ ]xx) Magnesium greater than 2.5 mEq/L (1.25 mmol/L) with significant symptoms or findings; examples include: [ ]1) Weakness [ ]2) Altered mental status [ ]3) Cardiac abnormality (eg, arrhythmia, conduction disturbance) [ ]4) Breathing difficulty [ ]5) Severe medical etiology (eg, renal failure, hypovolemia) [ ]xxi) Uric acid greater than 20 mg/dL (1190 micromoles/L)(76) [ ]xxii) Uric acid greater than 8 mg/dL (476 micromoles/L) with significant symptoms or findings of tumor lysis syndrome; examples include(76): [ ]1) Creatinine greater than 1.5 times upper limit of normal [ ]2) Cardiac abnormality (eg, arrhythmia, conduction disturbance) [ ]3) Seizure [ ]XX. Acute blood loss causing significant abnormality as indicated by ANY ONE of the following(77)(78): [ ]a) Hemoglobin less than 10 g/dL (100 g/L) (not baseline) [ ]b) Hematocrit less than 30% (0.30) (not baseline) [ ]c) Repeat hematocrit decreased more than 2% (0.02) [ ]d) Uncontrolled bleeding [ ]XXI. Severe anemia indicated by ANY ONE of the following(78)(79): [ ]a) Altered mental status [ ]b) Chest pain [ ]c) Exertional dyspnea [ ]d) Syncope [ ]e) Other findings suggesting inadequate perfusion [ ]f) Treatment with transfusion or volume replacement is ineffective at resolving ANY ONE of the following [G]: [ ]i) Tachycardia for age [ ]ii) Orthostatic vital sign changes as indicated by ANY ONE of the following(80): [ ]1) Fall in SBP of 20 mm Hg or more 1 to 3 minutes after patient sits or stands from recumbent position [ ]2) Fall in DBP of 10 mm Hg or more 1 to 3 minutes after patient sits or stands from recumbent position [ ]XXII. High-risk low platelet count as indicated by ANY ONE of the following( 81)(82): [ ]a) Severe or life-threatening bleeding (eg, intracranial, major gastrointestinal, or extensive mucosal bleeding), with any reduced platelet count [ ]b) Platelet count less than 20,000/mm3 (20 x109/L) with any active bleeding [ ]c) Platelet count less than 10,000/mm3 (10 x109/L) with minor purpura or petechiae [ ]d) Platelet count less than 5000/mm3 (5 x109/L) [ ]e) Low platelet count with hemolytic anemia [ ]XXIII. Disseminated intravascular coagulation(77)(83) [ ]XXIV. Severe adverse drug or systemic toxin reaction requiring inpatient treatment; examples include(84)(85): [ ]a) Serotonin syndrome(86) [ ]b) Neuroleptic malignant syndrome(86) [ ]c) Cholinergic syndrome with severe symptoms (eg, bronchorrhea, weakness, mental status changes, seizures) [ ]d) Sympathetic syndrome with severe symptoms (eg, seizures, mental status changes, cardiac dysrhythmias) [ ]e) Anticholinergic syndrome [ ]XXV. Severe pain requiring acute inpatient management as indicated by ALL of the following (87)(88)(89): [ ]a) Continuous or frequent (eg, every 2 to 4 hours) parenteral analgesics required [H] [ ]b) Rapid improvement expected from treatment or acute intervention (eg, surgery, anesthesia procedure) [ ]XXVI.Severe behavioral health issues judged unmanageable at a lower level of care (eg, residential) in a patient who is ANY ONE of the following(91) [ ]a) Acutely suicidal [ ]b) A danger to self (eg, self-mutilating or suicidal behavior) [ ]c) A danger to others (eg, assaultive or homicidal behavior) [ ]d) Incapacitated because of grave disability (eg, inability to provide for self at lower level of care) (92) [ ]XXVII. Inpatient monitoring needed; examples include(1)(3)(87)(93)(94)(95)(96 ): [ ]a) Vital signs, neurologic signs, or vascular checks more frequently than every 4 hours [ ]b) Cardiac or respiratory monitoring beyond the scope (eg, over 24 hours) of observation care [ ]c) Pulmonary artery catheter monitoring [ ]d) Suspected compartment syndrome(97) (98) [ ]e) Cerebral bleeding, hydrocephalus, or vasospasm monitoring [ ]f) Increased intracranial pressure or cerebral edema monitoring [ ]g) monitoring [ ]XXVIII. Treatment requiring inpatient care; examples include: [ ]a) IV fluid to replace significant ongoing losses (greater than 3 L/m2 per day)(53) [ ]b) High concentration oxygen (greater than 40%)(33)(99)(100) [ ]c) Frequent respiratory therapy (more frequently than every 4 hours) to maintain airflow rates greater than 60% of baseline(33)(99)(100) [ ]d) Epidural analgesia(87) [ ]e) IV anticoagulation, vasoactive, or antiarrhythmic medication(19 )(23) [ ]f) Acute thrombolytics (generally require 24 hours of observation )(101)(102) [ ]XXIX. Emergency procedures needed; examples include: [ ]a) Emergency inpatient surgery [ ]b) Temporary pacemaker placement(103) [ ]c) Chest tube placement with active evacuation (eg, suction, drainage)(104) [ ]d) Emergent cardioversion(105) [ ]e) Emergent cardiac or vascular procedures (eg, cardiac catheterization, angioplasty) (17)(18) [ ]f) Emergent dialysis access placement and institution(10)(106) [ ]g) Emergent pericardiocentesis(107) [ ]h) Emergent plasmapheresis or leukapheresis(83) [ ]i) Emergent tracheostomy The original [employer] content created by [employer] has been revised. The portions of the content which have been revised are identified through the use of italic text or in bold, and [employer] has neither reviewed nor approved the modified material. All other unmodified content is copyright [employer]. Please see references footnoted in the original [employer] edition 2016 Admission Criteria Met: Yes
[2016-10-04] MEDS: D5/0.45NS 1,000 ML IV SCH (13:27)
[2016-10-04] MEDS ORDERED: ATIVAN IV PRN (14:54)
[2016-10-04] MEDS ORDERED: ATIVAN PO PRN ×2 (15:04→17:41)
--- NOTE | 2016-10-04 17:50 | History and Physical Report ---
History of Present Illness Date of examination: 10/04/16 Date of admission: 10/04/16 10:30 Chief complaint: Altered mental status History of present illness: Pt is a 36 y/o lady who has a history of severe anxiety disorder and had been on Ativan and Seroquel. Seroquel was discontinued 2 month ago at [facility] where she had visited. She was brought in to the [facility] ED today by her who stated that while celebrating her day yesterday, 10/03/16, without any alcohol or illicit drug use, she started behaving irrationally, transitioning from severe agitation with aggressive behavior where she was telling her to get away from her that she hates him to crying shortly thereafter requesting him to hold her. Her who was in the room during this evaluation stated that the patient has not slept for the past 3 days. She endorses visual hallucination of her mother who was long time ago. Denies any SI, HI, tactile or auditory hallucination. had similar episode 4 days ago she stated but denies any memory of what happened then and even yesterday. Pt was taken to [facility] by her yesterday during this episode however they decided ita she can be treated on out patent bases. Her symptom became worse today for which she came to the emergency departments stating she was going to flip if not given any medication. Potassium was found to be 3.1 with magnesium of 1.6 and elevated Lactic acid of 4.4. Repeat was 3.8. Pt denied any dysuria, cough chest pain, diaphoresis, fever/chills, malaise, nausea/vomiting, seizure, shortness of breath, foul smelling urine, difficulty walking, diarrhea, headache or blurred vision Past History Past Medical History: other (sever anxiety d/o w and Bipolar d/o) Past Surgical History: No surgical history Social history: lives with family. denies: IV drug use, full code Family history: no significant family history Medications and Allergies Allergies Allergy/AdvReac Type Severity Reaction Status Date / Time lorazepam AdvReac ELEVATES HR Verified 04/21/16 09:24 morphine AdvReac Unknown Verified 04/21/16 09:24 Home Medications Medication Instructions Recorded Confirmed Last Taken Type ALBUTEROL Inhaler [ProAir HFA 2 puff IH QID PRN #1 inha 10/29/15 10/04/16 Rx Inhaler] LORazepam [Ativan] 2 mg PO BID 10/29/15 10/04/16 10/01/16 History Loratadine 10 mg PO DAILY 10/29/15 10/04/16 10/29/15 History predniSONE [Deltasone] 20 mg PO QDAY #5 tab 10/29/15 10/04/16 10/03/16 Rx Benzonatate [Tessalon Perles] 100 mg PO Q8HR PRN #14 capsule 04/21/16 10/04/16 Unknown Rx Losartan [Cozaar] 100 mg PO DAILY MDD 100 mg 10/04/16 10/04/16 10/03/16 History 100 mg Nebivolol HCl [Bystolic] 10 mg PO DAILY MDD 10 mg 10/04/16 10/04/16 10/03/16 History 10 mg Active Meds: Active Medications Dextrose/Sodium Chloride (D5/0.45ns) 1,000 mls @ 100 mls/hr IV DIRECT NELSON Last Admin: 10/04/16 13:27 Dose: 100 mls/hr Lorazepam (Ativan) 2 mg PO Q4H PRN PRN Reason: Agitation Last Admin: 10/04/16 15:28 Dose: 2 mg Review of Systems Ears, nose, mouth and throat: no ear pain, no ear discharge, no tinnitis Cardiovascular: palpitations, no chest pain, no orthopnea, no rapid/irregular heart beat Respiratory: no cough, no cough with sputum, no excessive sputum Gastrointestinal: no abdominal pain, no nausea, no vomiting Musculoskeletal: no neck stiffness, no neck pain, no shooting arm pain Integumentary: no rash, no pruritis, no redness Neurological: no head injury, no transient paralysis, no paralysis, no weakness Psychiatric: anxiety, memory loss, sleep disturbances, insomnia, disorientation , hallucinations, no suicidal ideation Endocrine: no cold intolerance, no heat intolerance, no polyphagia, no excessive thirst Hematologic/Lymphatic: no easy bruising, no easy bleeding Allergic/Immunologic: no urticaria, no allergic rhinitis Exam - Constitutional Vitals: Temp Pulse Resp BP Pulse Ox 98.6 F 112 H 18 138/80 100 10/04/16 14:00 10/04/16 14:00 10/04/16 14:00 10/04/16 14:00 10/04/16 14:00 General appearance: Present: no acute distress, well-nourished, other (anxius) - EENT Eyes: Present: PERRL ENT: hearing intact, clear oral mucosa - Neck Neck: Present: supple, normal ROM - Respiratory Respiratory effort: normal Respiratory: bilateral: CTA - Cardiovascular Heart Sounds: Present: S1 & S2. Absent: rub, click - Extremities Extremities: pulses symmetrical, No edema Peripheral Pulses: within normal limits - Abdominal General gastrointestinal: Present: soft, non-tender, non-distended, normal bowel sounds Female genitourinary: Present: normal - Integumentary Integumentary: Present: clear, warm, dry - Musculoskeletal Musculoskeletal: gait normal, strength equal bilaterally - Psychiatric Psychiatric: appropriate mood/affect, intact judgment & insight - Neurologic Neurologic: CNII-XII intact, moves all extremities Results - Labs CBC & Chem 7: 10/04/16 02:32 10/04/16 02:32 Assessment and Plan Assessment - Metabolic encepjalopathy - Hypokalemia - Hypomagnesemia - Lactic acidosis - Severe anxiety disorder - Hypertension - Acute Psychosis Plan Admit Medsurge , Urine drug screen, CMP, CBC Lactic acid level q 4 x 3 - Lactic acidosis not likely secondary to infection as pt has no fever of Leukocytosis. Continue to trend. - Ativan 2 mg iv q 4hrs - Supplement K+ and Mg2+ - IV hydration Commence home meds including oral antihypertensives - DVT with Lovenox and GI with pepcid - Psych consult
[2016-10-04] MEDS ORDERED: MAGNESIUM SULFATE 2GM/50ML 2 GM/50 ML BAG IV ONE (18:11)
[2016-10-04] MEDS ORDERED: NON-FORMULARY (Losartan [Cozaar] 100 MG) PO SCH (18:15)
[2016-10-04] MEDS: ATIVAN PO PRN (18:42)
[2016-10-04] MEDS: K-DUR PO SCH (21:50)
[2016-10-04] MEDS: LOVENOX SUB-Q SCH (21:50)
[2016-10-05 07:26] LABS: Basophils % (Auto) 0.3 % (0.0-1.8); Eosinophils % (Auto) 0.2 % (0.0-4.3); Hematocrit 30.3 % (30.3-42.9); Hemoglobin 9.9 gm/dl (10.1-14.3); Mean Corpuscular HGB Conc 33 % (30-34); Mean Corpuscular Hemoglobin 27 pg (28-32); Mean Corpuscular Volume 83 fl (79-97); Platelet Count 230 K/mm3 (140-440); Red Blood Count 3.66 M/mm3 (3.65-5.03); White Blood Count 6.4 K/mm3 (4.5-11.0)
[2016-10-05 07:29] LABS: Alanine Aminotransferase 21 units/L (7-56); Albumin 3.6 g/dL (3.9-5); Albumin/Globulin Ratio 1.1 %; Alkaline Phosphatase 51 units/L (35-129); Anion Gap 18 mmol/L; Blood Urea Nitrogen 5 mg/dL (7-17); Calcium 8.2 mg/dL (8.4-10.2); Carbon Dioxide 18 mmol/L (22-30); Chloride 109.2 mmol/L (98-107); Glucose 92 mg/dL (65-100); Potassium 3.4 mmol/L (3.6-5.0); Sodium 142 mmol/L (137-145)
[2016-10-05 07:31] LABS: Red Cell Distribution Width 21.4 % (13.2-15.2)
[2016-10-05] MEDS: D5/0.45NS 1,000 ML IV SCH (09:26)
[2016-10-05] MEDS: COZAAR PO SCH (09:27)
[2016-10-05] MEDS: K-DUR PO SCH (09:27)
--- NOTE | 2016-10-05 11:56 | Progress Note ---
Assessment and Plan - Patient Problems (1) Metabolic encephalopathy Current Visit: Yes Status: Acute (2) Altered mental status Current Visit: Yes Status: Acute Qualifiers: Altered mental status type: A Coma depth: C Coma timing: C (3) Anxiety disorder Current Visit: Yes Status: Acute Qualifiers: Anxiety disorder type: A (4) Essential hypertension Current Visit: No Status: Acute Subjective Date of service: 10/05/16 Principal diagnosis: metabolic encephalopathy, altered mental status Interval history: Internal medicine Covering Dr. Dr. Johnson, patient seen and examined chart reviewed, no agitation reported and patient denied any headache or shortness of breath no fever reported afebrile and vital stable. Objective - Exam Narrative Exam: GENERAL: Patient not in any acute distress not pale no jaundice no cyanosis HEENT: Mucous membrane is moist, no oral lesions. NECK: [No JVD, no thyroid enlargement and no lymphadenopathy.] CHEST/LUNGS: [Good air exchange bilaterally, no wheeze, no rales and no rhonchi. ] [No chest wall tenderness, percussion is normal, symmetrical chest wall.] HEART/CARDIOVASCULAR: [Regular rate and rhythm, S1 and S2 only, no murmur.] ABDOMEN: [Abdomen is soft, nondistended, no guarding, no rebound tenderness, no masses palpable per abdomen, active bowel sounds.] SKIN: [Warm and dry, no rash.] NEURO: [Awake, alert, oriented x3, speech normal. Power 5/5 in all the extremities.] EXTREMITIES: [No pedal edema, good peripheral pulses, no finger or toe clubbing. ] - Constitutional Vitals: Vital Signs - 12hr 10/05/16 10/05/16 00:42 08:00 Temperature 98 F 98.0 F Pulse Rate [ 100 H 75 Left] Respiratory 20 18 Rate Blood Pressure 160/95 133/88 [Left Arm] O2 Sat by Pulse 98 100 Oximetry - Labs CBC & Chem 7: 10/05/16 06:07 10/05/16 06:07 Labs: Abnormal lab results 10/05/16 10/05/16 Range/Units 06:07 06:07 Hgb 9.9 L (10.1-14.3) gm/dl MCH 27 L (28-32) pg RDW 21.4 H (13.2-15.2) % Lymph % (Auto) 45.8 H (13.4-35.0) % [place] % (Auto) 10.0 H (0.0-7.3) % Potassium 3.4 L (3.6-5.0) mmol/L Chloride 109.2 H (98-107) mmol/L Carbon Dioxide 18 L (22-30) mmol/L BUN 5 L (7-17) mg/dL Creatinine 0.4 L (0.7-1.2) mg/dL Calcium 8.2 L (8.4-10.2) mg/dL Phosphorus 2.40 L (2.5-4.5) mg/dL Magnesium 2.40 H (1.7-2.3) mg/dL AST 47 H (5-40) units/L Albumin 3.6 L (3.9-5) g/dL
[2016-10-05] MEDS: ATIVAN PO PRN ×2 (13:23→22:21)
--- NOTE | 2016-10-05 19:56 | Consultation ---
History of Present Illness - Reason for Consult Consult date: 10/05/16 Reason for consult: psychiatric evaluation - Chief Complaint Chief complaint: "Anxiety" - History of Present Psychiatric Illness Pt is a 36 year old female who has a history of severe anxiety disorder and had been on Ativan and Seroquel. She is being seen for psychiatric consultation due to recent behavior and anxiety. Seroquel was discontinued 2 month ago at [facility] where she had visited. She has an outpatient psychiatrist. Per the record, she was brought in to the [facility] ED today by her who stated that while celebrating her day yesterday, 10/03/16, without any alcohol or illicit drug use, she started behaving irrationally, transitioning from severe agitation with aggressive behavior where she was telling her to get away from her that she hates him to crying shortly thereafter requesting him to hold her. Her who was in the room during this evaluation stated that the patient has not slept for the past 3 days. She endorses visual hallucination of her mother who was long time ago. She denies any SI, HI, tactile or auditory hallucinations. She reports a similar episode 4 days prior. She was taken to [facility] and referred to outpatient services. Her primary complaint is anxiety and states the Ativan does not work anymore.She does not want the seroquel increased. She reports sleeping well last night since it was added. Past History Past Medical History: other (sever anxiety d/o w and Bipolar d/o) Past Surgical History: No surgical history Social history: lives with family. denies alcohol or illicit substance use. She is starting a business Previously on trazodone and reports it did not work well Medications and Allergies Allergies Allergy/AdvReac Type Severity Reaction Status Date / Time lorazepam AdvReac ELEVATES HR Verified 04/21/16 09:24 morphine AdvReac Unknown Verified 04/21/16 09:24 Home Medications Medication Instructions Recorded Confirmed Last Taken Type ALBUTEROL Inhaler [ProAir HFA 2 puff IH QID PRN #1 inha 10/29/15 10/04/16 Rx Inhaler] LORazepam [Ativan] 2 mg PO BID 10/29/15 10/04/16 10/01/16 History Loratadine 10 mg PO DAILY 10/29/15 10/04/16 10/29/15 History predniSONE [Deltasone] 20 mg PO QDAY #5 tab 10/29/15 10/04/16 10/03/16 Rx Benzonatate [Tessalon Perles] 100 mg PO Q8HR PRN #14 capsule 04/21/16 10/04/16 Unknown Rx Losartan [Cozaar] 100 mg PO DAILY MDD 100 mg 10/04/16 10/04/16 10/03/16 History 100 mg Nebivolol HCl [Bystolic] 10 mg PO DAILY MDD 10 mg 10/04/16 10/04/16 10/03/16 History 10 mg Active Meds: Active Medications Enoxaparin Sodium (Lovenox) 40 mg SUB-Q QDAY@2200 [facility] Last Admin: 10/04/16 21:50 Dose: 40 mg Dextrose/Sodium Chloride (D5/0.45ns) 1,000 mls @ 100 mls/hr IV DIRECT NELSON Last Admin: 10/05/16 09:26 Dose: 100 mls/hr Lorazepam (Ativan) 2 mg PO Q3H PRN PRN Reason: Agitation Last Admin: 10/05/16 13:23 Dose: 2 mg Losartan Potassium (Cozaar) 100 mg PO QDAY [facility] Last Admin: 10/05/16 09:27 Dose: 100 mg Quetiapine Fumarate (Seroquel) 50 mg PO QHS [facility] Last Admin: 10/04/16 21:50 Dose: 50 mg Mental Status Exam - Vital signs Last Vital Signs Temp 98.8 F 10/05/16 15:00 Pulse 91 H 10/05/16 15:00 Resp 18 10/05/16 15:00 BP 140/85 10/05/16 15:00 Pulse Ox 100 10/05/16 15:00 - Exam Orientation: time, place, person Affect: other (blunted) Mood: other (irritable) Thought content: other (no SI, no HI) Thought Process: Intact Perceptions: none (denies [facility] at the time of this exam) Speech: normal rate and pattern Concentration: focused Motor activity: normal Level of consciousness: alert Sleep Symptoms: Difficulty Falling Asleep (but improved) Appetite: decreased Interaction: cooperative (but guarded) Results Result Diagrams: 10/05/16 06:07 10/06/16 05:11 Abnormal lab results 10/05/16 10/05/16 10/05/16 Range/Units 06:07 06:07 12:08 Hgb 9.9 L (10.1-14.3) gm/dl MCH 27 L (28-32) pg RDW 21.4 H (13.2-15.2) % Lymph % (Auto) 45.8 H (13.4-35.0) % [place] % (Auto) 10.0 H (0.0-7.3) % Potassium 3.4 L (3.6-5.0) mmol/L Chloride 109.2 H (98-107) mmol/L Carbon Dioxide 18 L (22-30) mmol/L BUN 5 L (7-17) mg/dL Creatinine 0.4 L (0.7-1.2) mg/dL POC Glucose 109 H (70-105) Calcium 8.2 L (8.4-10.2) mg/dL Phosphorus 2.40 L (2.5-4.5) mg/dL Magnesium 2.40 H (1.7-2.3) mg/dL AST 47 H (5-40) units/L Albumin 3.6 L (3.9-5) g/dL All other labs normal. Assessment and Plan Assessment and plan: Impression: Anxiety disorder, unspecified Bipolar disorder unspecified Benzodiazpine tolerance present. Withdrawal precipitating worsening anxiety is possible. No SI, HI or psychosis. Recommendation: Involuntary hold not recommended. 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 It is recommended to increase the Seroquel for mood but the patient declines. Outpatient referrals provided Will follow up in one day
[2016-10-05] MEDS: LOVENOX SUB-Q SCH ×2 (22:00→22:18)
[2016-10-06] MEDS: D5/0.45NS 1,000 ML IV SCH (05:29)
[2016-10-06] MEDS: ATIVAN PO PRN (05:36)
[2016-10-06 06:02] LABS: Chloride 105.2 mmol/L (98-107); Potassium 3.7 mmol/L (3.6-5.0); Sodium 139 mmol/L (137-145)
[2016-10-06 06:03] LABS: Alanine Aminotransferase 22 units/L (7-56); Albumin 3.3 g/dL (3.9-5); Albumin/Globulin Ratio 1.1 %; Alkaline Phosphatase 52 units/L (35-129); Anion Gap 19 mmol/L; Blood Urea Nitrogen 7 mg/dL (7-17); Calcium 8.2 mg/dL (8.4-10.2); Carbon Dioxide 19 mmol/L (22-30); Glucose 97 mg/dL (65-100); Total Protein 6.4 g/dL (6.3-8.2)
[2016-10-06 08:00] VITALS: BP 123/83
[2016-10-06] MEDS: COZAAR PO SCH (10:10)
--- NOTE | 2016-10-06 14:41 | Discharge Summary ---
Providers - Providers Date of Admission: 10/04/16 10:30 Date of discharge: 10/06/16 Attending physician: SHANIQUE INTERIANO 10/04/16 14:33 Consult to Physician [CONS] Routine Consulting Provider: JUAN A OBRIEN Reason For Exam: psych evaluation Place consult to:: psych Notified:: jeanmarie Phone number called:: [phone] Was contact made?: Yes If yes, spoke with:: jeanmarie Time called:: 14:36 Comment:: said to place patient on list. 10/04/16 18:03 psychiatry consult [Consult to Mental Health] [CONS] Urgent Reason For Exam: Acute Psychosis with anxiety diorder Place consult to:: Psychiatris Notified:: yes Phone number called:: [phone] Was contact made?: Yes If yes, spoke with:: Kendy Primary care physician: [employer] [facility] Hospitalization Reason for admission: altered mental status, confusion, agitation Condition: Stable Pertinent studies: Labs showing elevated lactic acid level, hypokalemia, hypomagnesemia Hospital course: 36-year-old female patient of Dr. Dr. Interiano admitted with change in mental status. Patient's reported to have become irate agitated and confused while at a democrat, no alcohol intake or drug intake reported. Patient was evaluated in the emergency room and later it was found to be abnormal including hypokalemia, hypomagnesemia and slightly elevated lactic acid, drug screen was essentially negative. Patient was admitted started on IV fluids and potassium was replaced. Magnesium was also replaced. Follow-up labs shows normal levels of abnormal electrolytes, patient AST was noted to be slightly elevated at 40 following other liver enzymes however within normal range. Patient has history of anxiety disorder and previously on Xanax. Not currently on medication Patient's status has improved over the last 48 hours no further agitation. Patient is awake alert oriented 3, no further confusion agitation reported. On repeat labs within normal range with discharge patient home to follow up with her primary care physician and also to follow with psychiatrist if symptoms of anxiety persists. Disposition: - TO HOME OR SELFCARE - Discharge Diagnoses (1) Metabolic encephalopathy Status: Resolved (2) Altered mental status Status: Resolved Qualifiers: Altered mental status type: A Coma depth: C Coma timing: C (3) Anxiety disorder Status: Chronic Qualifiers: Anxiety disorder type: A (4) Essential hypertension Status: Chronic Core Measure Documentation - Palliative Care Palliative Care/ Comfort Measures: Not Applicable - Core Measures Any of the following diagnoses?: none Exam - Physical Exam Narrative exam: GENERAL: Patient not in any acute distress not pale no jaundice no cyanosis HEENT: Mucous membrane is moist, no oral lesions. NECK: [No JVD, no thyroid enlargement and no lymphadenopathy.] CHEST/LUNGS: [Good air exchange bilaterally, no wheeze, no rales and no rhonchi. ] [No chest wall tenderness, percussion is normal, symmetrical chest wall.] HEART/CARDIOVASCULAR: [Regular rate and rhythm, S1 and S2 only, no murmur.] ABDOMEN: [Abdomen is soft, nondistended, no guarding, no rebound tenderness, no masses palpable per abdomen, active bowel sounds.] SKIN: [Warm and dry, no rash.] NEURO: [Awake, alert, oriented x3, speech normal. Power 5/5 in all the extremities.] EXTREMITIES: [No pedal edema, good peripheral pulses, no finger or toe clubbing. ] - Constitutional Vitals: Temp Pulse Resp BP Pulse Ox 99.0 F 84 20 123/83 99 10/06/16 07:58 10/06/16 07:58 10/06/16 07:58 10/06/16 07:58 10/06/16 07:58 Plan Activity: no restrictions Weight Bearing Status: Full Weight Bearing Diet: regular Follow up with: SHANIQUE INTERIANO MD [Staff Physician] - 3-5 Days
== END 2016-10-06 14:50 | disposition home or self-care (01) | DRG 640 ==
LOC: ED 01:23 → OBSVTOIN 10:30 → 3A 10:30
PROVIDERS: ADMIT Family Medicine; ATTEND Family Medicine
DX: E87.6 Hypokalemia (principal); G93.41 Metabolic encephalopathy; F23 Brief psychotic disorder; E87.2 Acidosis; R00.0 Tachycardia, unspecified; E83.42 Hypomagnesemia; F41.9 Anxiety disorder, unspecified; I10 Essential (primary) hypertension; R41.82 Altered mental status, unspecified; F31.9 Bipolar disorder, unspecified; Z88.5 Allergy status to narcotic agent
CPT/HCPCS: 36415; 71020; 80053; 80307; 80320; 81001; 82140; 82962; 83735; 84100; 84443; 84703; 85025; 85379; 87040; 93005; 93010; 96361; 96365; 96366; 96375; 99285; G0378; G0480; J1650; J1956; J3475; J7030; J7512